=== PATIENT | female | born 1940 | race Caucasian/White ===

== ENCOUNTER → 2020-10-04 | Outpatient (CLI) | payer OTHER ==
[~2020-10-04] MED LIST: ADVIL200 M1 PO; ALPRAZOLAM 0.0.25 M1 PO; ASPIRIN EC325 M1 PO; CETIRIZINE HCL5 MG PO; CHLORTHALIDONE25 MG PO; CO-ENZYME Q101 EACH PO; FISH OIL 1,0001 EAC9 PO; LOSARTAN POTAS100 MG PO; NORVASC 2.5 MG2.5 M1 PO; OCUVITE TABLET1 EAC1 PO; PRAMIPEXOLE DI0.5 MG PO; PROAIR HFA8.5 GM INH; REPATHA SU140 MG/1 M SUBQ; TURMERIC500 M2 PO; VITAMIN C1000 MG PO
[2020-10-04 14:07] LABS: HEMATOCRIT 38.2 % (37.0-47.0); HEMOGLOBIN 12.9 gm/dL (12.0-15.0); MCH 30.1 pg (26.0-34.0); MCHC 33.7 g/dL (28.0-37.0); MCV 89.4 fL (80.0-100.0); RBC 4.28 mil/uL (4.20-5.00); RDW 14.6 % (10.5-14.5)
[2020-10-04 14:10] LABS: URINE BILIRUBIN NEGATIVE (Negative); URINE BLOOD NEGATIVE (Negative); URINE CLARITY CLEAR; URINE COLOR YELLOW; URINE GLUCOSE-RANDOM* NEGATIVE (Negative); URINE KETONES NEGATIVE (Negative); URINE LEUKOCYTES-REFLEX NEGATIVE (Negative); URINE PROTEIN (DIPSTICK) NEGATIVE (Negative); URINE UROBILINOGEN 0.2 E.U./dl (0.2-1.0)
[2020-10-04 14:14] LABS: URINE NITRITE-REFLEX POSITIVE (Negative)
[2020-10-04 14:18] LABS: ALBUMIN 3.3 g/dL (3.4-5.0); CALCIUM 8.9 mg/dL (8.5-10.1); CREATININE 0.9 mg/dL (0.6-1.0); POTASSIUM 3.6 mmol/L (3.5-5.1)
[2020-10-04 14:26] LABS: INR 0.94; PROTIME 10.3 Seconds (10.5-12.1)
[2020-10-04 14:39] LABS: BACTERIA-REFLEX >30 Many /HPF (None Seen); CASTS None Seen /LPF (None Seen); CRYSTALS None Seen /LPF (None Seen); SQUAMOUS 0-3 Few /LPF (0-3); URINE RBC None Seen /HPF (NONE SEEN); URINE WBC-REFLEX 0-5 Rare /HPF (0-5)
== END ==
LOC: PAC 09:23
PROVIDERS: ATTEND Orthopaedic Surgery
DX: Z01.812 Encounter for preprocedural laboratory examination (principal); Z20.822 Contact with and (suspected) exposure to COVID-19

== ENCOUNTER 2020-10-09 06:21 | Observation (INO) | payer OTHER ==
[~2020-10-09] VITALS: Ht 167.6 cm; Wt 102.1 kg
--- NOTE | ~2020-10-09 | O ---
[facility] [place] [address] OPERATIVE REPORT Name: KONSTANTIN BRAVO Room #: 437-P [employer] M.R.#: [id number] Admission: 10/09/20 Attend Phys: Everton Carreon MD Discharge: Date of : 44 Report #: [id number] THIS REPORT FOR: cc: CORBIN STOVALL Physician not on staff Everton Carreon MD ~ DOC #: [id number] Everton Carreon MD DATE OF SERVICE: 10/09/2020 PREOPERATIVE DIAGNOSIS: Right knee osteoarthritis. POSTOPERATIVE DIAGNOSIS: Right knee osteoarthritis. PROCEDURE: Right total knee arthroplasty using Navio robotic assistance. SURGEON: Everton Carreon MD. MAINTENANCE TECHNICIAN 3RD SHIFT: Litzy Thakkar PA-C INDICATION FOR MAINTENANCE TECHNICIAN 3RD SHIFT: Throughout the case, extensive retraction, manipulation of the knee was required. This was afforded to me by my assistant womens volleyball coach. ANESTHESIA: LMA with adductor canal block. IMPLANTS: A Graned and Nephew size 5 Journey II BCS cobalt chrome femur, size 4 tibia, size 12 constrained polyethylene and size 32 patella. TOURNIQUET TIME: 55 minutes. ESTIMATED BLOOD LOSS: 25 mL COMPLICATIONS: None. SPECIMENS: None. CONDITION UPON LEAVING OPERATING ROOM: Stable. INDICATIONS FOR PROCEDURE: The patient is a 80-year-old female with right knee osteoarthritis. She had failed conservative measures for this and after discussion with her, she elected for right total knee arthroplasty. DESCRIPTION OF PROCEDURE: Risks, benefits, alternatives, complications were discussed in detail with the patient including but not limited to risk of anesthesia, risk of damage to nerves, arteries, blood vessels, risk for infection, bleeding, risk for continued knee pain, need for reoperation. [facility] [address] [place] [address] OPERATIVE REPORT Name: KONSTANTIN BRAVO Room #: 437-P [facility] [place] M.R.#: [id number] Admission: 10/09/20 Attend Phys: Everton Carreon MD Discharge: Date of : 44 Report #: [id number] Informed consent was obtained from the patient. Right knee was appropriately marked in the preoperative holding area. IV Ancef was given for preoperative antibiotics. She was brought to the operating room and placed in the supine position on the operating room table. LMA anesthesia was induced without complication. Tourniquet was placed on the right thigh. Right lower extremity was prepped and draped in normal sterile fashion. Timeout was performed properly identifying the patient, procedure as well as instrumentation and implants. All in the operating room in agreement. Right lower extremity was exsanguinated and tourniquet was inflated. Tourniquet time was 55 minutes. Standard midline approach to the knee was made with 10 blade through the skin. Dissection was taken down sharply to the fascia and deep flaps were developed medially and laterally. Fresh 10 blade was used to make a medial parapatellar arthrotomy and the knee was inspected. There was severe tricompartmental osteoarthritis. ACL and PCL were removed sharply. Reference pins were placed in the femur and the tibia, then the knee was digitally mapped using the [employer] robotic system. Intraoperative plan was made and we sized the size 5 femur to size 4 tibia and a 10 spacer. After acceptance of the intraoperative plan, the distal femoral cut was made with Navio bur. Distal femoral cutting block was pinned in place and chamfer cuts were made. Attention was turned to the tibia. Remainder of the menisci were removed. Tibial resection guide was pinned in place using the Navio for placement and tibial resection was made. Flexion and extension gaps were then checked and found to have good balance in flexion and extension both medially and laterally. Tibia sized, found to be a size 4. Size 4 tibial trial was placed, pinned and punched. Size 5 femoral trial was placed, box cut was made. This was then trialed with a size 10 up to a size 12 polyethylene. Size 12 polyethylene demonstrated 1 mm laxity medially throughout range of motion with up to 4 mm in deep flexion laterally. It was felt that we could make up for this with a constrained implant. A 5 mm of bone was resected from the posterior surface of the patella and a size 32 patellar trial button was placed. Knee was taken through range of motion, found to be stable, found to have good patellar tracking. Trial components were removed. Bone ends were thoroughly irrigated with normal saline. Final size 4 tibia, size 5 Journey II BCS cobalt chrome femur and a size 32 patella were cemented in place using standard cementation techniques. While the cement cured, a periarticular injection consisting of morphine, ropivacaine, epinephrine, Toradol was placed around the knee joint capsule. After the cement cured, tourniquet was deflated. Hemostasis obtained with Bovie cautery. A final size 12 constrained polyethylene was placed. A gram of vancomycin was placed deep in the joint. Fascia was closed with 0 Vicryl. Skin was closed with 2-0 Vicryl, skin staple and a CHIVO dressing was applied. The patient tolerated this procedure well and went to the recovery room under the care of Anesthesia postoperatively. MD TIFFANY Bocanegra/IZZY [address] [id number] OPERATIVE REPORT Name: KONSTANTIN BRAVO Room #: 437-P [facility] [place] Aide#: [id number] Admission: 10/09/20 Attend Phys: Everton Carreon MD Discharge: Date of : 44 Report #: [id number] By: [id number] Everton Carreon MD /nt
[2020-10-09 08:56] VITALS: BP 155/55
[2020-10-09 11:00] VITALS: BP 170/117
[2020-10-09 11:15] VITALS: BP 146/64
[2020-10-09 11:30] VITALS: BP 160/99
[2020-10-09 12:00] VITALS: BP 133/79
--- NOTE | 2020-10-09 12:08 | NUR ---
Pt transferred from PACU. Denies pain. Dressing c/d/i. Polar care in place. CONCETTA hose and SCDs in place. C/o nausea. Anti-emetic administered. Relief achieved. Admission completed. Family at bedside. Tolerated fluids. IVF infusing. Call light within reach. Fall precautions in place. Will continue to administer.
--- NOTE | 2020-10-09 13:21 | NUR ---
CM S/W PT WHO INDICATED SHE LIVES HOME ALONE, CURRENTLY HER GRANDDTR IS HERE FROM [place] STAYING WITH HER UNTIL SHE RECOVERS AND HER SON LIVES NEXT DOOR. PT HAS CANE AND WALKER. PT DRIVES AND IS INDEPENDENT W/ADLS. PT HAS A RAMP FROM GARAGE TO ENTRANCE AND LIVES ON ONE LEVEL. PT DENIES HX WITH HH OR SNF AND DOESNT NOT CURRENTLY WANT HH AT THIS TIME. CM TO CONT TO FOLLOW.
[2020-10-09 14:17] VITALS: BP 133/79
== END 2020-10-09 16:59 | disposition home or self-care (01) ==
LOC: OR 06:21 → TBA 06:21 → OR 09:19 → 4S 11:14 → OR 12:43 → 4S 15:57
PROVIDERS: ADMIT Orthopaedic Surgery; ATTEND Orthopaedic Surgery
DX: M17.11 Unilateral primary osteoarthritis, right knee (principal); Z20.822 Contact with and (suspected) exposure to COVID-19
CPT/HCPCS: 50010; 50101; 50415; 50954; 51130; 51225; 51320; 52001; 52282; 53000; 53078; 56527; 56528; 57095; 57103; 57110; 57127; 57181; 58239; 64042; 70005